=== PATIENT | male | born 1970 | race Native Hawaiian/Other Pacific Islander ===

== ENCOUNTER 2016-09-21 09:01 | Outpatient (CLI) | payer BC | END 2016-09-21 19:35 | disposition home or self-care (01) | LOC: RAD 09:01 | DX: J40 Bronchitis, not specified as acute or chronic (principal) ==

== ENCOUNTER 2016-11-21 09:17 | Outpatient (CLI) | payer BC | END 2016-11-21 10:30 | disposition home or self-care (01) | LOC: RESP 09:17 | DX: J40 Bronchitis, not specified as acute or chronic (principal) | CPT/HCPCS: 94640; 94664 ==